=== PATIENT | female | born 1965 | race African-American/Black ===

== ENCOUNTER 2018-03-15 13:39 | Emergency (ER) | payer OTHER ==
[2018-03-15] MEDS ORDERED: ACETAMINOPHEN 500 MG TABLET (FP) PO ONE (13:48)
[2018-03-15 13:51] VITALS: BP 135/64; PULSE 74; TEMP 98.5; BMI 31.7
[2018-03-15] MEDS ORDERED: ACETAMINOPHEN 500 MG TABLET (FP) ONE (13:51)
--- NOTE | 2018-03-15 13:53 | PDOC ---
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) Exam Limitations: No Limitations - History of Present Illness Occurred: reports: just prior to arrival Severity: reports: severe Pain Location: reports: upper extremity Past History - Travel Traveled outside of the country in the last 30 days: No Close contact w/someone who was outside of country & ill: No - Past Medical History Allergies/Adverse Reactions: Allergies Allergy/AdvReac Type Severity Reaction Status Date / Time No Known Allergies Allergy Unverified 03/15/18 13:41 Home Medications: Ambulatory Orders Ibuprofen [Motrin -] 600 mg PO TID #20 tablet 03/15/18 Review of Systems - Review of Systems Able to Perform ROS?: Yes Is the patient limited [place] proficient: Yes Constitutional: No: Symptoms Reported, See HPI, Chills, Diaphoresis, Fever, Loss of Appetite, Malaise, Night Sweats, Weakness, Weight Stable, Unintentional Wgt. Loss, Unexplained wgt Loss, Other HEENTM: No: Symptoms Reported, See HPI, Eye Pain, Blurred Vision, Tearing, Recent change in vision, Double Vision, Cataracts, Ear Pain, Ocular Prothesis, Ear Discharge, Nose Pain, Nose Congestion, Tinnitus, Nose Bleeding, Hearing Loss , Throat Pain, Throat Swelling, Mouth Pain, Dental Problems, Difficulty Swallowing, Mouth Swelling, Other Respiratory: No: Symptoms reported, See HPI, Cough, Orthopnea, Shortness of Breath, SOB with Exertion, SOB at Rest, Stridor, Wheezing, Productive cough, Hemoptysis, Other Cardiac (ROS): No: Symptoms Reported, See HPI, Chest Pain, Edema, Irregular Heart Rate, Lightheadedness, Palpitations, Syncope, Chest Tightness, Other ABD/GI: No: Symptoms Reported, See HPI, Abdominal Distended, Abd. Pain w/ defecation, Blood Streaked Bowels, Constipated, Diarrhea, Difficulty Swallowing , Nausea, Poor Appetite, Poor Fluid Intake, Rectal Bleeding, Vomiting, Indigestion, Abdominal cramping, Tarry Stools, Other Musculoskeletal: Yes: See HPI, Joint Pain All Other Systems: Reviewed and Negative *Physical Exam - Physical Exam General Appearance: Yes: Nourished, Appropriately Dressed, Apparent Distress HEENT: positive: FLIP Neck: positive: Supple Extremity: positive: Normal Capillary Refill, Other (Limited range of motion and swelling left shoulder) Neurologic: positive: Fully Oriented, Alert *DC/Admit/Observation/Transfer Diagnosis at time of Disposition: Shoulder injury Qualifiers: Encounter type: initial encounter Laterality: left Qualified Code(s): S49.92XA - Unspecified injury of left shoulder and upper arm, initial encounter - Discharge Dispostion Disposition: HOME Condition at time of disposition: Improved Decision to Admit order: No - Referrals Referrals: Antwon Taylor MD [Staff Physician] - - Patient Instructions Printed Discharge Instructions: How to Use a Sling, How to Prevent Falls, Shoulder Sprain Additional Instructions: Call your primary care doctor to secure a follow up with an orthopedic doctor in the [facility] network - Post Discharge Activity Forms/Work/School Notes: Back to Work
[2018-03-15] MEDS ORDERED: IBUPROFEN 600 MG TABLET (FP) PO ONE ×2 (14:30→14:31)
== END 2018-03-15 15:36 | disposition home or self-care (01) ==
LOC: FER 13:39
DX: S49.92XA Unspecified injury of left shoulder and upper arm, initial encounter (principal); W18.39XA Other fall on same level, initial encounter; Y93.9 Activity, unspecified; Y92.89 Other specified places as the place of occurrence of the external cause
CPT/HCPCS: 73030-TC-LT-FY; 99282-25